=== PATIENT | female | born 1960 | race Caucasian/White ===

== ENCOUNTER 2021-09-12 17:12 | Emergency (ER) | payer MEDICARE ==
[~2021-09-12 17:12] MED LIST: LIDEX0.05% T; PREDNICOT20 MG PO
[2021-09-12] MEDS ORDERED: ATIVAN1 MG PO (17:30)
== END 2021-09-12 18:00 | disposition home or self-care (01) ==
LOC: ED 17:12
DX: F41.0 Panic disorder [episodic paroxysmal anxiety] (principal); Z91.040 Latex allergy status

== ENCOUNTER 2024-03-22 01:13 | Inpatient (IN) | payer OTHER, MEDICAID ==
[~2024-03-22] VITALS: Ht 149.9 cm; Wt 63.5 kg
[2024-03-22] VITALS (17 sets, daily range): BP systolic 71–126; BP diastolic 35–84
[~2024-03-22 01:13] MED LIST changes: +ATIVAN1 MG PO
[2024-03-22] MEDS ORDERED: Metoprolol Tartrate 5 MG/5 ML VIAL IV ONE ×7 (01:30→05:10)
[2024-03-22 01:39] LABS: BASO # 0.1 10*3/uL (0.0-0.1); BASO % 0.5 % (0.0-1.0); EOS # 0.2 10*3/uL (0.0-0.4); EOS % 1.4 % (1.0-4.0); HEMATOCRIT 38.2 % (37.0-47.0); LYMPH # 2.7 10*3/uL (1.3-4.4); LYMPH % 20.8 % (27.0-41.0); MEAN CELL VOLUME 96.7 fl (81.0-99.0); MEAN CORPUSCULAR HGB 31.1 pg (27.0-31.0); MEAN CORPUSCULAR HGB CONC 32.2 g/dl (33.0-37.0); MEAN PLATELET VOLUME 11.6 fl (9.6-12.3); MONO # 0.7 10*3/uL (0.1-1.0); MONO % 5.5 % (3.0-9.0); NEUT # 9.1 10*3/uL (2.3-7.9); NEUT % 71.4 % (47.0-73.0); PLATELET COUNT AUTOMATED 410 10*3/uL (130-400); RED BLOOD COUNT 3.95 10*6/uL (4.10-5.10); RED CELL DISTRI WIDTH 18.2 % (0-14.5); WHITE BLOOD COUNT 12.8 10*3/uL (4.8-10.8)
[2024-03-22 02:01] LABS: POTASSIUM 5.3 mmol/L (3.4-5.1); TOTAL PROTEIN 7.5 gm/dL (6.0-8.0)
[2024-03-22] MEDS ORDERED: MEPERIDINE HYDROCHLORIDE 25 MG/1 ML VIAL IV ONE (02:30)
[2024-03-22] MEDS ORDERED: Phenylephrine Hydrochloride 250 ML IV SCH (02:55)
[2024-03-22] MEDS ORDERED: Diltiazem Hydrochloride 25 MG/5 ML VIAL IV ONE (05:25)
[2024-03-22] MEDS ORDERED: Diltiazem Hydrochloride 125 ML IV SCH (05:30)
[2024-03-22 06:08] LABS: BILIRUBIN 1+ (Negative); BLOOD Negative (Negative); CLARITY Cloudy (Clear); COLOR Dark Yellow (Yellow); GLUCOSE Negative (Negative); KETONE Trace (Negative); LEUKO ESTERASE 1+ (Negative); NITRITE Negative (Negative)
[2024-03-22] MEDS ORDERED: BISACODYL 5 MG TAB PO PRN (06:50)
[2024-03-22] MEDS ORDERED: BISACODYL 10 MG SUPP R PRN (06:50)
[2024-03-22] MEDS ORDERED: Magnesium Hydroxide 30 ML UDC PO PRN (06:50)
[2024-03-22] MEDS ORDERED: ACETAMINOPHEN 325 MG TAB PO PRN (06:50)
[2024-03-22] MEDS ORDERED: ACETAMINOPHEN 650 MG SUPP R PRN (06:50)
[2024-03-22 06:56] LABS: BACTERIA 3+; EPITHELIAL CELLS 21-30
[2024-03-22] MEDS ORDERED: APIXABAN 5 MG TAB PO SCH (10:00)
[2024-03-22] MEDS ORDERED: SODIUM CHLORIDE 0.9% 1,000 ML IV ONE ×2 (10:10→16:10)
[2024-03-22] MEDS ORDERED: DIGOXIN 500 MCG/2 ML AMP IV ONE ×2 (14:25)
[2024-03-22 14:59] LABS: ABG O2 SATURATION 98.5 % (94.0-98.0); ARTERIAL BLOOD GAS PH 7.404 (7.350-7.450); ARTERIAL BLOOD GAS PO2 126.6 mmHg (83.0-108.0)
[2024-03-22 15:03] LABS: ABG BASE EXCESS -3.1 mmol/L (-2.0-3.0)
[2024-03-22] MEDS ORDERED: Ceftriaxone Sodium 1 GM in SYRINGE INFUSION 10 ML IV SCH (16:30)
[2024-03-22] MEDS ORDERED: METOPROLOL SUCCINATE XR 25 MG TAB PO SCH (16:46)
[2024-03-22] MEDS ORDERED: LASIX40 MG PO (19:02)
[2024-03-22] MEDS ORDERED: METOPROLOL SUCC25 M2 PO (19:02)
[2024-03-22] MEDS ORDERED: PANTOPRAZOLE SO40 MG PO (19:03)
[2024-03-22] MEDS ORDERED: ALDACTONE25 MG PO (19:03)
[2024-03-22] MEDS ORDERED: SLOW-MAG71.5 MG PO (19:03)
[2024-03-22] MEDS ORDERED: HYDROXYZINE PAM25 M1 PO (19:04)
[2024-03-22] MEDS ORDERED: ROPINIROLE HY0.25 MG PO (19:04)
[2024-03-22] MEDS ORDERED: ENTRESTO 24 MG1 EACH PO (19:04)
[2024-03-22] MEDS ORDERED: ATORVASTATIN CA10 M1 PO (19:05)
[2024-03-22] MEDS ORDERED: CITALOPRAM10 MG PO (19:05)
[2024-03-22] MEDS ORDERED: TRELEGY ELLIPT1 EACH INH (19:06)
[2024-03-22] MEDS ORDERED: AIRSUPRA 90-810.7 GM INH (19:07)
[2024-03-22] MEDS ORDERED: Ondansetron Hydrochloride 4 MG/2 ML VIAL IV PRN (19:35)
[2024-03-23] VITALS: BP 128/46
[2024-03-23 04:00] VITALS: BP 138/41
[2024-03-23 05:39] LABS: POTASSIUM 4.7 mmol/L (3.4-5.1)
[2024-03-23 06:20] LABS: BASO % 0.3 % (0.0-1.0); EOS # 0.2 10*3/uL (0.0-0.4); EOS % 1.4 % (1.0-4.0); HEMATOCRIT 33.5 % (37.0-47.0); LYMPH # 1.2 10*3/uL (1.3-4.4); LYMPH % 11.3 % (27.0-41.0); MEAN CELL VOLUME 96.3 fl (81.0-99.0); MEAN CORPUSCULAR HGB 31.3 pg (27.0-31.0); MEAN CORPUSCULAR HGB CONC 32.5 g/dl (33.0-37.0); MEAN PLATELET VOLUME 11.7 fl (9.6-12.3); MONO # 0.4 10*3/uL (0.1-1.0); NEUT % 82.5 % (47.0-73.0); PLATELET COUNT AUTOMATED 350 10*3/uL (130-400); RED BLOOD COUNT 3.48 10*6/uL (4.10-5.10); RED CELL DISTRI WIDTH 18.1 % (0-14.5); WHITE BLOOD COUNT 10.9 10*3/uL (4.8-10.8)
[2024-03-23] MEDS ORDERED: AIRSUPRA INH PRN (07:50)
[2024-03-23 08:00] VITALS: BP 132/46
[2024-03-23] MEDS ORDERED: SODIUM CHLORIDE 0.9% 1,000 ML IV ONE (09:50)
[2024-03-23] MEDS ORDERED: CHLORIDE PO SCH (10:00)
[2024-03-23] MEDS ORDERED: [UNRECOGNIZED DRUG - OTHER] INH SCH (10:00)
[2024-03-23] MEDS ORDERED: CITALOPRAM 20 MG TAB PO SCH (10:00)
[2024-03-23] MEDS ORDERED: APIXABAN 5 MG TAB PO SCH (10:00)
[2024-03-23] MEDS ORDERED: CALCIUM PO SCH (10:00)
[2024-03-23] MEDS ORDERED: FUROSEMIDE 40 MG TAB PO SCH (10:00)
[2024-03-23] MEDS ORDERED: MAGNESIUM PO SCH (10:00)
[2024-03-23] MEDS ORDERED: SACUBITRIL/VALSARTAN 24 MG-26 MG TABLET PO SCH (10:00)
[2024-03-23] MEDS ORDERED: SPIRONOLACTONE 25 MG TAB PO SCH (10:00)
[2024-03-23] MEDS ORDERED: DIGOXIN 500 MCG/2 ML AMP IV ONE (11:45)
[2024-03-23 12:00] VITALS: BP 114/38
[2024-03-23 16:00] VITALS: BP 153/52
[2024-03-23] MEDS ORDERED: LORazepam 1 MG TAB PO ONE (18:35)
[2024-03-23] MEDS ORDERED: hydrOXYzine pamoate 25 MG CAP PO PRN (18:35)
[2024-03-23] MEDS ORDERED: MULTIVITAMIN 1 TAB TAB PO SCH (18:50)
[2024-03-23 20:00] VITALS: BP 121/44
[2024-03-23] MEDS ORDERED: ATORVASTATIN CALCIUM 10 MG TAB PO SCH (22:00)
[2024-03-24] VITALS: BP 121/55
[2024-03-24] MEDS ORDERED: Pantoprazole Sodium 40 MG TAB PO SCH (06:00)
[2024-03-24 06:34] LABS: BASO % 0.3 % (0.0-1.0); EOS # 0.2 10*3/uL (0.0-0.4); EOS % 1.9 % (1.0-4.0); HEMATOCRIT 32.4 % (37.0-47.0); LYMPH # 1.5 10*3/uL (1.3-4.4); LYMPH % 14.1 % (27.0-41.0); MEAN CELL VOLUME 97.6 fl (81.0-99.0); MEAN CORPUSCULAR HGB 31.6 pg (27.0-31.0); MEAN CORPUSCULAR HGB CONC 32.4 g/dl (33.0-37.0); MEAN PLATELET VOLUME 11.4 fl (9.6-12.3); MONO # 0.5 10*3/uL (0.1-1.0); NEUT # 8.5 10*3/uL (2.3-7.9); NEUT % 78.3 % (47.0-73.0); PLATELET COUNT AUTOMATED 347 10*3/uL (130-400); RED BLOOD COUNT 3.32 10*6/uL (4.10-5.10); RED CELL DISTRI WIDTH 18.1 % (0-14.5); WHITE BLOOD COUNT 10.8 10*3/uL (4.8-10.8)
[2024-03-24 07:10] LABS: POTASSIUM 4.3 mmol/L (3.4-5.1)
[2024-03-24 08:00] VITALS: BP 123/47
[2024-03-24] MEDS ORDERED: CITALOPRAM 20 MG TAB PO SCH (08:00)
[2024-03-24] MEDS ORDERED: MAGNESIUM SULFATE 50 ML IV ONE (08:50)
[2024-03-24] MEDS ORDERED: METOPROLOL SUCCINATE XR 25 MG TAB PO ONE (11:35)
[2024-03-24 12:00] VITALS: BP 116/51
[2024-03-24 16:00] VITALS: BP 103/43
[2024-03-24 20:54] VITALS: BP 124/78
[2024-03-24] MEDS ORDERED: Mirtazapine 15 MG TAB PO SCH (22:00)
[2024-03-24 23:49] VITALS: BP 142/61
[2024-03-25] VITALS (7 sets, daily range): BP systolic 107–135; BP diastolic 41–78
[2024-03-25 05:59] LABS: BUN 14 mg/dl (9-23); CHLORIDE 106 mmol/L (98-107); POTASSIUM 4.1 mmol/L (3.4-5.1)
[2024-03-25 06:26] LABS: BASO # 0.1 10*3/uL (0.0-0.1); BASO % 0.5 % (0.0-1.0); EOS # 0.2 10*3/uL (0.0-0.4); EOS % 2.3 % (1.0-4.0); HEMATOCRIT 33.6 % (37.0-47.0); LYMPH # 1.6 10*3/uL (1.3-4.4); LYMPH % 15.4 % (27.0-41.0); MEAN CELL VOLUME 99.1 fl (81.0-99.0); MEAN CORPUSCULAR HGB 30.4 pg (27.0-31.0); MEAN CORPUSCULAR HGB CONC 30.7 g/dl (33.0-37.0); MONO # 0.6 10*3/uL (0.1-1.0); MONO % 5.9 % (3.0-9.0); NEUT # 7.7 10*3/uL (2.3-7.9); NEUT % 75.6 % (47.0-73.0); PLATELET COUNT AUTOMATED 333 10*3/uL (130-400); RED BLOOD COUNT 3.39 10*6/uL (4.10-5.10); RED CELL DISTRI WIDTH 17.7 % (0-14.5); WHITE BLOOD COUNT 10.1 10*3/uL (4.8-10.8)
[2024-03-25] MEDS ORDERED: SODIUM CHLORIDE 0.9% 500 ML IV ONE (08:10)
[2024-03-25] MEDS ORDERED: Metoprolol Tartrate 5 MG/5 ML VIAL IV ONE (08:10)
[2024-03-25] MEDS ORDERED: Diltiazem Hydrochloride 25 MG/5 ML VIAL IV ONE (09:30)
[2024-03-25] MEDS ORDERED: SACUBITRIL/VALSARTAN 24 MG-26 MG TABLET PO SCH (10:00)
[2024-03-25] MEDS ORDERED: METOPROLOL SUCCINATE XR 50 MG TAB PO SCH (10:00)
[2024-03-25] MEDS ORDERED: Diltiazem Hydrochloride 125 ML IV SCH (10:15)
[2024-03-25] MEDS ORDERED: Amiodarone Hydrochloride 200 MG TAB PO SCH (14:00)
[2024-03-26] VITALS: BP 147/67
[2024-03-26 04:54] LABS: BUN 11 mg/dl (9-23); CHLORIDE 107 mmol/L (98-107); POTASSIUM 3.9 mmol/L (3.4-5.1)
[2024-03-26 06:14] LABS: BASO % 0.4 % (0.0-1.0); EOS # 0.3 10*3/uL (0.0-0.4); EOS % 2.5 % (1.0-4.0); HEMATOCRIT 35.7 % (37.0-47.0); LYMPH # 1.7 10*3/uL (1.3-4.4); LYMPH % 17.4 % (27.0-41.0); MEAN CELL VOLUME 99.4 fl (81.0-99.0); MEAN CORPUSCULAR HGB 30.4 pg (27.0-31.0); MEAN CORPUSCULAR HGB CONC 30.5 g/dl (33.0-37.0); MEAN PLATELET VOLUME 11.1 fl (9.6-12.3); MONO # 0.6 10*3/uL (0.1-1.0); NEUT # 7.2 10*3/uL (2.3-7.9); NEUT % 73.4 % (47.0-73.0); PLATELET COUNT AUTOMATED 350 10*3/uL (130-400); RED BLOOD COUNT 3.59 10*6/uL (4.10-5.10); RED CELL DISTRI WIDTH 17.8 % (0-14.5); WHITE BLOOD COUNT 9.9 10*3/uL (4.8-10.8)
[2024-03-26] MEDS ORDERED: MAGNESIUM SULFATE 50 ML IV ONE (07:00)
[2024-03-26 07:48] VITALS: BP 142/42
[2024-03-26] MEDS ORDERED: SPIRONOLACTONE 25 MG TAB PO SCH (10:15)
[2024-03-26 11:13] VITALS: BP 118/49
[2024-03-26] MEDS ORDERED: MIRTAZAPINE15 M2 PO (13:26)
[2024-03-26] MEDS ORDERED: METOPROLOL SUCC50 M1 PO (13:26)
[2024-03-26] MEDS ORDERED: ELIQUIS5 M1 PO (13:26)
[2024-03-26] MEDS ORDERED: AMIODARONE HYD200 MG PO ×2 (13:26)
[2024-04-12] MEDS ORDERED: Amiodarone Hydrochloride 200 MG TAB PO SCH (10:00)
== END 2024-03-26 15:07 | disposition home or self-care (01) | DRG 871 ==
LOC: ED 01:13 → ICCU 06:31 → EDHOLD 06:31 → ICCU 07:54
PROVIDERS: Emergency Medicine; Student in an Organized Health Care Education/Training Program; ADMIT Internal Medicine; ATTEND Internal Medicine
PROC: 5A09357 Assistance with Respiratory Ventilation, Less than 24 Consecutive Hours, Continuous Positive Airway Pressure (ICD-10-PCS; principal; 2024-03-22)
PROC: 5A0935A Assistance with Respiratory Ventilation, Less than 24 Consecutive Hours, High Flow/Velocity Cannula (ICD-10-PCS; 2024-03-22)
DX: A41.9 Sepsis, unspecified organism (principal); I50.23 Acute on chronic systolic (congestive) heart failure; J96.01 Acute respiratory failure with hypoxia; N17.0 Acute kidney failure with tubular necrosis; E87.1 Hypo-osmolality and hyponatremia; E87.20 Acidosis, unspecified; E44.0 Moderate protein-calorie malnutrition; N39.0 Urinary tract infection, site not specified; F33.2 Major depressive disorder, recurrent severe without psychotic features; R65.20 Severe sepsis without septic shock; I25.5 Ischemic cardiomyopathy; J44.9 Chronic obstructive pulmonary disease, unspecified; F17.210 Nicotine dependence, cigarettes, uncomplicated; I48.0 Paroxysmal atrial fibrillation; I11.0 Hypertensive heart disease with heart failure; D75.839 Thrombocytosis, unspecified; E87.5 Hyperkalemia; R73.9 Hyperglycemia, unspecified; F12.10 Cannabis abuse, uncomplicated; K21.9 Gastro-esophageal reflux disease without esophagitis; I25.10 Atherosclerotic heart disease of native coronary artery without angina pectoris; Z86.718 Personal history of other venous thrombosis and embolism; Z79.01 Long term (current) use of anticoagulants; Z79.899 Other long term (current) drug therapy; Z79.2 Long term (current) use of antibiotics; Z98.890 Other specified postprocedural states; Z95.1 Presence of aortocoronary bypass graft; Z68.28 Body mass index [BMI] 28.0-28.9, adult